=== PATIENT | female | born 1970 | race Caucasian/White ===

== ENCOUNTER 2023-01-08 15:46 | Emergency (ER) | payer SELFPAY ==
[2023-01-08] MEDS ORDERED: Ibuprofen 200 MG TAB ONE (17:22)
[2023-01-08] MEDS ORDERED: Acetaminophen 500 MG TAB ONE (17:22)
== END 2023-01-08 17:35 | disposition home or self-care (01) ==
LOC: ERS 15:46
DX: R51.9 Headache, unspecified (principal); I10 Essential (primary) hypertension; F17.200 Nicotine dependence, unspecified, uncomplicated
CPT/HCPCS: 99283